=== PATIENT | male | born 1960 | race African-American/Black ===

== ENCOUNTER → 2017-08-25 | Outpatient (CLI) | payer OTHER ==
[~2017-08-25] MED LIST: IOPAMIDOL 200 MG/ML 20 ML VIAL IT ONE; LIDOCAINE HCL 1% LOCAL INJ 20 ML VIAL ONE
--- NOTE | 2017-08-27 08:00 | Diagnostic Imaging Report ---
Date and Time: 08/25/2017 Procedure: Lumbar myelogram, aborted blend plant operator: Dr. Starr Pre-operative diagnosis: Myelopathy Post-operative diagnosis: Myelopathy Conscious Sedation: None Additional Medications: Lidocaine 1% for local anesthesia Air Kerma: 99.34 mGy Estimated blood loss: Minimal Specimens: None Implants: None Condition at completion of procedure: Stable Disposition: Discharged home Complications: No immediate DISCUSSION: Informed consent was obtained and documented in the medical record after discussion of risks and benefits. Building Operator radiograph was obtained showing 5 nonrib-bearing lumbar-type vertebral bodies with scattered degenerative disc changes. The patient was placed in the prone position on the fluoroscopic table. The lower back was prepped and draped in the standard sterile fashion. A suitable percutaneous approach to the thecal sac at the L3-L4 level was identified and the skin was marked. 1% lidocaine was infiltrated into the skin and subcutaneous tissues for local anesthesia. Then, attempts were made to advance a 22-gauge spinal needle into the thecal sac, ultimately without success despite confirmation of appropriate needle depth with a crosstable lateral radiograph. Therefore, this site was abandoned and attention was turned to the L4-L5 level. 1% lidocaine was again infiltrated into the skin and subcutaneous tissues for local anesthesia. Attempts were again made to advance a 22-gauge spinal needle into the thecal sac, ultimately without success. The procedure was then terminated at patient's request. Sterile dressings were applied. IMPRESSION: Unsuccessful lumbar myelogram secondary to inability to obtain access to the thecal sac despite attempts at multiple levels. Signed by: Dr. Hunter Starr M.D. on 08/27/2017 7:57 AM
== END ==
LOC: DX 06:36
PROVIDERS: ATTEND Specialist
DX: R42 Dizziness and giddiness (principal); R55 Syncope and collapse; R22.0 Localized swelling, mass and lump, head
CPT/HCPCS: 62304; J2001; Q9966